=== PATIENT | male | born 1975 | race Caucasian/White ===

== ENCOUNTER 2018-08-05 12:01 | Emergency (ER) | payer MEDICAID ==
[~2018-08-05] VITALS: Ht 170.2 cm; Wt 75.1 kg
[2018-08-05 12:25] VITALS: BP 125/82
[2018-08-05] MEDS ORDERED: LISI-167 PO (13:42)
[2018-08-05] MEDS ORDERED: METHADONE PO (13:42)
[2018-08-05] MEDS ORDERED: DULO30CA2 PO (13:42)
[2018-08-05] MEDS ORDERED: OLAN5TAB9 PO (13:42)
[2018-08-05] MEDS ORDERED: GABA600T2 PO (13:42)
[2018-08-05] MEDS ORDERED: QUET25TA PO (13:42)
[2018-08-05 14:01] LABS: BASOPHILS # (AUTO) 0.05 x10^3/uL (0-0.1); BASOPHILS % (AUTO) 0 % (0-1); EOSINOPHILS # (AUTO) 0.24 x10^3/uL (0-0.4); EOSINOPHILS % (AUTO) 2 % (1-7); LYMPHOCYTES # (AUTO) 2.93 x10^3/uL (1-3.4); LYMPHOCYTES % (AUTO) 25 % (22-44); MD NO; MEAN CORPUSCULAR HGB CONC 34.8 g/dL (33.2-36.2); MEAN CORPUSCULAR VOLUME 92.1 fL (81-97); MEAN PLATELET VOLUME 8.2 fL (7.4-10.4); MONOCYTES # (AUTO) 0.81 x10^3/uL (0.2-0.8); MONOCYTES % (AUTO) 7 % (2-9); NEUTROPHILS # (AUTO) 7.76 x10^3/uL (1.8-6.8); NEUTROPHILS % (AUTO) 66 % (42-75); PLATELET COUNT 295 x10^3/uL (130-400); RED BLOOD COUNT 4.74 x10^6/uL (4.38-5.82); RED CELL DISTRIBUTION WIDTH 14.7 % (9.4-14.8)
[2018-08-05 14:09] LABS: ALBUMIN 3.9 g/dL (3.4-5.0); ANION GAP 8 mmol/L (5-15); CALCIUM 8.6 mg/dL (8.5-10.1); CHLORIDE 108 mmol/L (98-107); CREATININE 0.88 mg/dL (0.7-1.3)
== END 2018-08-05 14:47 | disposition home or self-care (01) ==
LOC: ED 14:33
DX: R52 Pain, unspecified (principal)
CPT/HCPCS: 36415; 80048; 82040; 85025; 99284